=== PATIENT | male | born 1980 | race Caucasian/White ===

== ENCOUNTER 2021-06-16 14:42 | Outpatient (REF) | payer OTHER, SELFPAY | END 2021-06-16 14:43 | disposition home or self-care (01) | LOC: HO.LAB 14:42 | PROVIDERS: PCP Hospitalist; Visit Provider Internal Medicine | DX: Z20.822 Contact with and (suspected) exposure to COVID-19 (principal) | CPT/HCPCS: C9803; U0003; U0005 ==

== ENCOUNTER 2023-06-27 15:30 | Outpatient (AMB) | payer OTHER, SELFPAY ==
--- NOTE | 2023-06-27 15:34 | MHC.PC.OV ---
Vital Signs 06/27/23 15:36 Height 5 ft 7 in Weight 218 lb 3 oz BMI 34.2 BP 152/90 H Blood Pressure Location Rt radial Position Sitting Respiration 14 Pulse 76 Pulse Source Pulse Oximeter Temp 98.8 F Temp Source Temporal Artery Scan Pulse Oximetry (%) 98 Oxygen Delivery Method Room Air Intake Visit Reasons: BP Med review Intake Note: Patient is here with his spouse-Tiffanie. Patient reports concerns for blood pressure and medication review for blood pressure. Patient is experiencing palpitations x2 days. Patient reports relaxing, laying down helps palpitations subside. 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 Accompanied by: Spouse Allergies hydrochlorothiazide Allergy (Unknown, Verified 06/27/23 15:57) headache No Known Allergies Allergy (Verified 06/27/23 15:57) Medication List - Last Reconciled 06/27/23 by Jewel Pennington CNP lisinopril 10 mg PO DAILY lisinopril 20 mg PO DAILY Tobacco use date assessed: 06/27/23 Dental Screening Dental Screen Date: 06/27/23 Did you have a dental visit in the last 12 months?: No Did you have a dental problem in the last 6 months where you did not have access to dental care?: No Was dental information given to patient?: Patient has dentist HPI HPI Comments History of Present Illness Details 43-year-old [place] speaking male, accompanied by his , presents for hypertension follow-up. He is on lisinopril 20 mg in the morning and 10 mg at night. He notes he took the medication as prescribed until he ran out 5 days ago. He reports palpitations yesterday and the day before while walking. His symptoms last 5-10 seconds. He has not experienced any palpitations today. He denies chest pain or acute symptoms at this time. Interpretation by the patient's per patient's preference. [facility] Social History Housing: House Patient Tobacco Use Status: Never used Tobacco e-Cigarette/Vaping Use: Never Used service: No Current occupational status: employed Cognitive needs: No Hearing needs: No Vision needs: No Questionnaire Thrive Questionnaire Date Thrive assessed: 10/27/21 GUADALUPE-7 AMB Questionnaire GUADALUPE-7 Date GUADAULPE - 7 assessed: 10/27/21 Source: Developed by Drs. Mohinder L. Nelly Simpson, Pardeep Bedoya and colleagues, with an educational cary from [employer]. Review of Systems Const Details: Const Denies chills, Denies fatigue, Denies fever(s), Denies headache(s) and Denies weakness ENT Denies dizziness and Denies headache(s) Card Denies chest pain, Denies lightheadedness, Denies dyspnea and Denies other (Palpitations) Resp Denies cough, Denies dyspnea, Denies wheezing and Denies other ( shortness of breath) GI Denies abdominal pain, Denies melena, Denies hematochezia, Denies change in bowel habits, Denies dyspepsia and Denies nausea Denies hematuria and Denies dysuria Musc Denies abnormal gait, Denies myalgias, Denies arthralgias, Denies numbness and Denies tingling Skin/Breast Denies rash, Denies unusual bruising and Denies wounds Neuro Denies abnormal gait, Denies dizziness, Denies headache(s), Denies memory loss, Denies numbness, Denies Sensory deficit (Neuro), Denies tingling and Denies weakness Psych Denies anxiety, Denies depression, Denies memory loss Endo Denies cold intolerance, Denies fatigue, Denies heat intolerance, Denies polydipsia and Denies polyuria Aller/Immun Denies wheezing Physical exam (Primary Care) Vital Signs: Last Vital Signs Temp 98.8 F 06/27/23 15:36 Pulse 76 06/27/23 15:36 Resp 14 06/27/23 15:36 BP 152/90 H 06/27/23 15:36 Pulse Ox 98 06/27/23 15:36 Oxygen Delivery Method Room Air 06/27/23 15:36 BMI result Body Mass Index 34.2 Tobacco/Smoking Status: Tobacco use Status Tobacco use date assessed 06/27/23 06/27/23 15:40 Patient Tobacco Use Status Never used Tobacco 06/27/23 15:40 e-Cigarette/Vaping Use Never Used 06/27/23 15:40 Thrive Assessment: Date of Thrive Assessment Date Thrive assessed 10/27/21 06/27/23 15:40 Const Other: General: no acute distress and well developed Nutritional Appearance: well nourished Orientation/consciousness: patient oriented x3 HENMT Head: Yes normocephalic and Yes atraumatic Eyes General: appearance normal, both eyes and all related structures Pupils: Equal, round and reactive pupils present EOM: EOMs intact bilaterally Resp Effort & Inspection: normal respiratory effort Auscultation: clear to auscultation bilaterally Cardio Rate: regular rate Rhythm: regular rhythm Heart sounds: S1 normal heart sound present, S2 normal heart sound present, no gallops, aortic murmurs present and no rubs GI Palpation (GI): No Abdominal aortic bruit present, Soft to palpation, nontender, No hepatosplenomegaly present and No Rebound tenderness present Auscultation: normal bowel sounds General: Yes no CVA tenderness Back/Spine/Pelvis Back: no CVA tenderness Cervical Spine: cervical ROM normal and No Cervical spine tenderness Thoracic/Lumbar Spine: thoraco-lumbar ROM normal, No pain with thoraco-lumbar ROM, No thoracic spinal tenderness and No lumbar spinal tenderness Extrem General: Yes normal to inspection, No edema and No calf tenderness Skin General: warm and dry. Normal skin color. Normal skin turgor Lesions: no lesions Rashes: no rashes Trauma: no lacerations or abrasions Wounds: no wounds Nails: normal Neuro General: patient oriented x3, gait normal and no focal neuro deficit Cranial nerves: Yes Equal, round and reactive pupils present Cognition (Neuro): normal cognition Gait exam (Neuro): Normal gait present Sensory Exam: No Sensory deficit (Neuro) Psych Appearance: grossly normal Affect: normal affect Attitude: cooperative Thought process: Normal thought process present Assessment and Plan Assessment & Plan (1) HTN (hypertension): Code(s): I10 - Essential (primary) hypertension Plan: Resting blood pressure is elevated, 150/100 Lisinopril refilled. Take as prescribed Low-sodium diet encouraged Follow-up for nurse visit in 1 week for blood pressure check Follow-up with PCP as planned or return sooner with concerns or symptoms Verbalized understanding and agreed with treatment plan. (2) Murmur: Code(s): R01.1 - Cardiac murmur, unspecified Plan: Reports palpitations yesterday and the day before while walking. His symptoms last 5-10 seconds. He has not experienced any palpitations today. Aortic systolic murmur Echo, EKG, and labs ordered Referred to Cardiology Follow-up with new or worsening symptoms Verbalized understanding and agreed with treatment plan. Orders: Orders CA echo transthoracic complete Today R01.1 - Cardiac murmur, unspecified ECG 12 lead EKG Today R01.1 - Cardiac murmur, unspecified Comprehensive [place]. Panel Fast Today I10 - Essential (primary) hypertension, R01.1 - Cardiac murmur, unspecified TSH reflex Free T4 Today I10 - Essential (primary) hypertension, R01.1 - Cardiac murmur, unspecified Complete Blood Count Auto Diff Today I10 - Essential (primary) hypertension, R01.1 - Cardiac murmur, unspecified Referrals Cardiology Referral R01.1 - Cardiac murmur, unspecified Medications: Refilled lisinopril 10 mg PO DAILY 90 tabs 1RF I10 - Essential (primary) hypertension lisinopril 20 mg PO DAILY 30 tabs 0RF Coding Level of Care Code Est Pt Level 4 (81814) Diagnoses HTN (hypertension) I10 Murmur R01.1
[2023-06-27 15:36] VITALS: BP 152/90; PULSE 76; RESP 14; TEMP 37.1; O2SAT 98; BMI 34.2
== END 2023-06-27 16:25 | disposition home or self-care (01) ==
PROVIDERS: PCP Hospitalist; Visit Provider Nurse Practitioner Family
DX: I10 Essential (primary) hypertension (principal); R01.1 Cardiac murmur, unspecified
CPT/HCPCS: 99214

== ENCOUNTER → 2023-07-03 08:34 | Outpatient (REF) | payer OTHER, SELFPAY ==
--- NOTE | 2023-07-03 08:43 | ECG_ITS ---
Test Reason : murmur Blood Pressure : / mmHG Vent. Rate : 072 BPM Atrial Rate : 072 BPM P-R Int : 164 ms QRS Dur : 104 ms QT Int : 356 ms P-R-T Axes : 022 -05 022 degrees QTc Int : 389 ms Normal sinus rhythm Minimal voltage criteria for LVH, may be normal variant ( Onofre product ) Borderline ECG When compared with ECG of 13-MAR-2018 14:35, No significant change was found Referred By: Jewel Pennington Electronically Signed By:JEFF RUSSO
== END ==
LOC: HO.CARD 08:34
PROVIDERS: PCP Hospitalist; Visit Provider Nurse Practitioner Family
DX: R01.1 Cardiac murmur, unspecified (principal)
CPT/HCPCS: 93005

== ENCOUNTER 2023-07-07 08:29 | Outpatient (REF) | payer OTHER, SELFPAY ==
[2023-07-07 08:43] LABS: MANUAL DIFF FLAG NO
[2023-07-07 09:05] LABS: Basophils Absolute Auto 0.1 X10*3/uL (0.0-0.2); Basophils Percent Auto 0.8 % (0-2); Eosinophils Absolute Auto 0.2 X10*3/uL (0.0-0.4); Hematocrit 54.9 % (42.0-52.0); Hemoglobin 17.6 g/dl (14.0-18.0); Imm Gran Abs Auto 0.02 X10*3/uL (0.00-0.03); Imm Gran Pct Auto 0.3 % (0.0-0.4); Lymphocytes Absolute Auto 2.7 X10*3/uL (1.2-4.9); Lymphocytes Percent Auto 36.7 % (20-40); Mean Corpuscular HGB Conc 32.1 g/dl (31.0-36.0); Mean Corpuscular Hemoglobin 28.8 pg (27.0-33.0); Mean Corpuscular Volume 89.9 fL (80.0-98.0); Mean Platelet Volume 11.4 fL (9.4-12.4); Monocytes Absolute Auto 0.6 X10*3/uL (0.1-1.2); Monocytes Percent Auto 7.6 % (2-11); Neutrophils Absolute Auto 3.8 x10*3/uL (2.0-8.3); Neutrophils Percent Auto 51.6 % (45-73); Platelet Count 200 X10*3/uL (160-400); Red Blood Count 6.11 X10*6/uL (4.60-5.80); Red Cell Distribution Width 13.7 % (11.0-16.0); White Blood Count 7.3 X10*3/uL (4.8-10.8)
[2023-07-07 09:40] LABS: Alanine Aminotransferase 45 U/L (0-40); Albumin Level 4.2 g/dL (3.5-5.0); Alkaline Phosphatase 82 U/L (39-117); Anion Gap 11 (12-20); Aspartate Amino Transferase 20 U/L (5-37); Bilirubin Total 0.5 mg/dL (0.0-1.0); Blood Urea Nitrogen 13 mg/dL (9-16); Calcium 9.4 mg/dL (8.4-10.2); Carbon Dioxide 28 mmol/L (22-29); Chloride 107 mmol/L (96-108); Estimated Glomerular Filt Rate > 60; Glucose Fasting 96 mg/dL (60-99); Potassium 4.8 mmol/L (3.3-5.1); Sodium 141 mmol/L (135-145); Total Protein 7.5 g/dL (6.5-8.0)
[2023-07-07 09:46] LABS: TSH reflex Free T4 0.64 uIU/mL (0.32-4.0)
== END 2023-07-07 08:30 | disposition home or self-care (01) ==
LOC: HO.LAB 08:29
PROVIDERS: PCP Hospitalist; Visit Provider Nurse Practitioner Family
DX: R01.1 Cardiac murmur, unspecified (principal); I10 Essential (primary) hypertension
CPT/HCPCS: 36415; 80053; 84443; 85025

== ENCOUNTER → 2023-08-01 08:06 | Outpatient (REF) | payer OTHER, SELFPAY ==
--- NOTE | 2023-08-01 08:09 | CA_ITS ---
Transthoracic Echocardiogram Patient (Last, First, Middle): Clark Moran, Gender: Male Date of : 1980 Age: 43 Procedure Date: 08/01/2023 Procedure Type: Transthoracic Echocardiogram Location: OP Height: 170.18 cm Weight: 97.98 kg BSA: 2.09 m2 Heart Rate: bpm BP: 130 / 74 mmHg Log Cooker: Referring MD: Jewel Pennington CNP Symptoms: R01.1 - Cardiac murmur, unspecified Study Quality: Good ECG Rhythm: Sinus Conclusions: - The left ventricular systolic function is normal. The calculated ejection fraction is 60% by biplane method. - No obvious valvular pathology seen on this study. Findings Left Ventricle Normal left ventricular cavity size. There is mildly increased left ventricular wall thickness. The left ventricular systolic function is normal. The calculated ejection fraction is 60% by biplane method. There is no evidence of regional wall motion abnormalities. Diastolic function is normal for age. Right Ventricle Normal right ventricular cavity size and systolic function. Atria Both atria are normal in size. Aortic Valve There is a normal trileaflet aortic valve. There is no aortic valve stenosis. There is no aortic valve regurgitation. Mitral Valve The mitral valve appears normal. There is no mitral valve regurgitation. There is no mitral valve stenosis. Pulmonic Valve The pulmonic valve is likely normal. There is trace pulmonic valve regurgitation. Tricuspid Valve There is trace tricuspid valve regurgitation. There is no evidence of pulmonary hypertension. Great Vessels The asc aorta is normal in size. Venous The inferior vena cava is normal in size and collapses greater than 50% with inspiration. Pericardium/Pleural There is no evidence of pericardial effusion. Prior Study Comparison No significant change compared to prior study dated: 04/14/2020. Recommendations, Care & Conclusions No obvious valvular pathology seen on this study. Measurements 2D Linear Measurements IVSd: 1.20 0.6-0.9/0.6-1.0 cm LVIDd: 4.84 3.9-5.3/4.2-5.9 cm LVIDd Index: 2.32 2.4-3.2/2.2-3.1 cm/m2 LVIDs: 2.79 2.0-3.6 cm LVPWd: 1.20 0.7-1.1 cm Ao Root: 3.00 2.1-3.5 cm LA Diam: 3.50 2.7-3.8/3.0-4.0 cm LAIDs Index: 1.67 1.5-2.3 cm/m2 LV Mass: 276.77 67-162/88-224 g LV Mass Index: 132.43 43-95/49-115 g/m2 LVOT Diam: 2.30 3.0+(-)1.3 cm 2D Systolic Function EF 4C: 57.10 >55% EF 2C: 64.40 >55% EF BiP: 60.40 >55% Mitral Valve MV Pk E: 0.85 MV PK A: 0.68 MV Decel Time: 146.00 E/A: 1.20 E'Lateral: 15.80 E'Medial: 5.98 E/E' Med: 14.20 E/E' Lat: 5.40 PHT: 43.00 MVA PHT: 5.12 Decel Custer: 5.82 Aortic Valve AoV Pk César: 1.32 AoV Mn César: 0.85 AoV VTI: 0.27 AoV Pk Grad: 7.00 Aov Mn Grad: 4.00 RIP Cont.VTI: 2.68 LVOT LVOT Pk César: 0.92 LVOT Mn César: 0.62 LVOT VTI: 0.18 LVOT Pk Grad: 3.00 LVOT Mn Grad: 2.00 LVOT Diam: 2.30 LVOT Area: 4.15 Diastolic Function MV Pk E: 0.85 MV Pk A: 0.68 E/A: 1.20 E'Medial: 5.98 E/E' Med: 14.20 E' Laterial: 15.80 E/E' Lat: 5.40 Right Ventricle TAPSE (mm): 22.00 TVS' César: 11.00 Tricuspid Valve TR Pk César: 1.84 TR Pk Grad: 14.00 RA Press: 3.00 RVSP: 17.00 Great Vessels Aorta Ao Root-2D: 3.00 2.0-3.7 cm Ao Asc: 3.50 2.1-3.4 cm Pulmonary Valve PV Pk César: 1.06 Peak PV Grad: 4.00 Updated in Other Vendor System with Status of Final Keyon Blankenship MD electronically signed on 08/02/2023 12:10:15 PM with status of Final
== END ==
LOC: HO.CARD 08:06
PROVIDERS: Visit Provider Nurse Practitioner Family
DX: R01.1 Cardiac murmur, unspecified (principal)
CPT/HCPCS: 93306

== ENCOUNTER → 2023-08-01 08:09 | Outpatient (BNV) | payer OTHER, SELFPAY | PROVIDERS: Visit Provider Internal Medicine | DX: R01.1 Cardiac murmur, unspecified (principal) | CPT/HCPCS: 93306 ==

== ENCOUNTER 2023-10-16 08:07 | Outpatient (AMB) | payer OTHER, SELFPAY ==
--- NOTE | 2023-10-16 08:30 | MHC.OFFVIS ---
Intake Vital Signs 10/16/23 08:31 Height 5 ft 7 in Weight 216 lb 7.903 oz BMI 33.9 BP 132/90 H Blood Pressure Location Rt brachial Position Sitting Pulse 82 Intake Visit Reasons: NPV/Cardiac murmur/M. 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 Upon auscultation by PCP, murmur was detected and hence he has been referred. He has overweight, hypertensive. However, no known cardiovascular disease. No history of any coronary disease or myocardial infarction or cardiomyopathy or in fact anything else from cardiac standpoint. He is on medications for hypertension. He takes lisinopril 20 mg the morning and 10 mg in the evening. Within limits of his activity, he does not have any symptoms like chest pain or shortness of breath or in fact anything cardiac sounding. PCP note mentions palpitations but repeatedly questioned him and he denies it. [facility] Surgical History (Updated 10/16/23 @ 08:35 by Deana Rowe) Hx of appendectomy Family History (Updated 10/16/23 @ 08:35 by Deana Rowe) Mother Heart problem Father Heart problem Housing: House Patient Tobacco Use Status: Never used Tobacco e-Cigarette/Vaping Use: Never Used service: No Current occupational status: employed Cognitive needs: No Hearing needs: No Vision needs: No Review of Systems Const Denies chills, Denies daytime sleepiness, Denies fatigue, Denies fever(s), Denies frequent falls, Denies night sweats, Denies snoring, Denies weakness, Denies weight gain and Denies weight loss Eyes Denies loss of vision ENT Denies dizziness and Denies hearing loss Card Denies chest pain, Denies chest pain with activity, Denies syncope, Denies rapid heart rate, Denies edema, Denies claudication, Denies leg edema, Denies lightheadedness, Denies palpitations, Denies dyspnea, Denies dyspnea on exertion and Denies orthopnea Resp Denies cough, Denies excessive phlegm production, Denies dyspnea, Denies dyspnea on exertion, Denies snoring and Denies wheezing GI Denies abdominal pain, Denies hematochezia, Denies change in bowel habits, Denies change in stool character, Denies heartburn, Denies nausea and Denies vomiting Denies hematuria, Denies dysuria and Denies urinary frequency Musc Denies arthralgias, Denies muscle weakness, Denies numbness and Denies tingling Skin/Breast Denies nail changes and Denies rash Neuro Denies Abnormal speech present, Denies dizziness, Denies syncope, Denies frequent falls, Denies loss of vision, Denies memory loss, Denies numbness, Denies tingling and Denies weakness Psych Denies depression and Denies memory loss Endo Denies fatigue and Denies palpitations Aller/Immun Denies wheezing Physical Exam Vital Signs: Last Vital Signs Pulse 82 10/16/23 08:31 BP 132/90 H 10/16/23 08:31 BMI result Body Mass Index 33.9 Const General: comfortable and no acute distress Orientation/consciousness: patient oriented x3 HEENT Other: Unremarkable Head: Yes normal to inspection Neck Neck: Yes normal visual inspection Chest Chest palpation & inspection: normal inspection of the chest Resp Auscultation: clear to auscultation bilaterally Cardio Palpation: normal PMI Heart sounds: S1 normal heart sound present, S2 normal heart sound present, no gallops, Murmur heart sound present systolic I/ and at the right sternal border and no rubs GI Palpation (GI): Soft to palpation Back/Spine/Pelvis Other: unremarkable Skin General skin exam: no rashes or lesions noted Neuro General: patient oriented x3 Speech: No Abnormal speech present Extrem General: Yes normal to inspection Psych Mental Status: mental status grossly normal Assessment & Plan Assessment & Plan (1) Murmur: Code(s): R01.1 - Cardiac murmur, unspecified Plan: Possibly some aortic valve sclerosis. On the echocardiogram, no significant valvular findings. (2) HTN (hypertension): Code(s): I10 - Essential (primary) hypertension Plan: Systolic looks okay but diastolic slightly high. Currently on lisinopril. May be followed through his own PCP. Plan If any symptoms in the future or other concerns, advised him to contact us. Discussed with significant other. Coding Level of Care Code New Pt Level 3 (28706) Diagnoses Murmur R01.1 HTN (hypertension) I10
[2023-10-16 08:31] VITALS: BP 132/90; PULSE 82; BMI 33.9
== END 2023-10-16 13:09 | disposition home or self-care (01) ==
PROVIDERS: PCP Hospitalist; Visit Provider Internal Medicine
DX: R01.1 Cardiac murmur, unspecified (principal); I10 Essential (primary) hypertension
CPT/HCPCS: 99203

== ENCOUNTER → 2023-10-16 08:07 | Outpatient (BNVA) | payer OTHER, SELFPAY | PROVIDERS: PCP Hospitalist; Visit Provider Internal Medicine | DX: R01.1 Cardiac murmur, unspecified (principal); I10 Essential (primary) hypertension | CPT/HCPCS: 99202 ==

== ENCOUNTER 2023-11-05 08:23 | Outpatient (AMB) | payer OTHER, SELFPAY ==
[2023-11-05 08:26] VITALS: BP 138/82; PULSE 80; RESP 12; O2SAT 95; BMI 34.6
--- NOTE | 2023-11-05 08:26 | A.OFFPC_ITS ---
Vital Signs 11/05/23 08:26 11/05/23 08:50 Height 5 ft 7 in Weight 221 lb 2 oz BMI 34.6 BP 138/82 136/90 H Blood Pressure Location Lt brachial Lt brachial Position Sitting Sitting Respiration 12 Pulse 80 Pulse Source Pulse Oximeter Pulse Oximetry (%) 95 Oxygen Delivery Method Room Air Intake Visit Reasons: CPE, Transfer of care from [facility] Intake Note: Patient is here for a physical and he reports he has no concerns. Patient reports he needs a refill on his lisinopril 20mg. Dining Services Director Required: No Accompanied by: Spouse Allergies hydrochlorothiazide Allergy (Unknown, Verified 11/05/23 08:47) headache Medication List - Last Reconciled 11/05/23 by Jewel Pennington CNP lisinopril 20 mg PO DAILY lisinopril 10 mg PO DAILY Tobacco use date assessed: 11/05/23 HPI HPI Comments History of Present Illness Details 43-year-old Mongolian speaking male, accom panied by his , presents for transfer of care His former PCP was DEAN who is no longer with the practice. His last office visit was on 06/27/2023 for hypertension follow-up. His last blood work was on 07/11/2023, findings were unrevealing except for slightly elevated ALT. Last cholesterol levels in 2019 revealed hyperlipidemia He has history of hypertension, hyperlipidemia, and heart murmur. He was evaluated by [facility] cardiology for heart murmur He admits to taking his medications as prescribed without adverse reactions He offers no complaints and denies acute symptoms at this time He notes that he has not been making healthy dietary choices nor has he been exercising [facility] Medical History (Updated 11/05/23 @ 09:10 by Jewel Pennington CNP) No pertinent past medical history Surgical History (Updated 10/16/23 @ 08:35 by Deana Rowe) Hx of appendectomy Family History (Updated 10/16/23 @ 08:35 by Deana Rowe) Mother Heart problem Father Heart problem Social History (Updated 11/05/23 @ 08:34 by Celia Arteaga CMA) Household Members: Spouse and Children Housing: House Are you a primary manager critical care unit to a significant other at home: No Do you presently have visiting nurse or other home services: No 75 years or older and lives alone: No Alcohol intake: never Patient Tobacco Use Status: Never used Tobacco e-Cigarette/Vaping Use: Never Used service: No Current occupational status: employed Current occupational exposures/hazards: Yes Sexual orientation: Unable to collect Gender identity: Unable to collect Cognitive needs: No Hearing needs: No Vision needs: No Questionnaire PHQ-9 Over the last 2 weeks, how often have you been bothered by any of the following problems? 1. Little interest or pleasure in doing things: not at all 2. Feeling down, depressed, or hopeless: not at all 3. Trouble falling or staying asleep, or sleeping too much: not at all 4. Feeling tired or having little energy: not at all 5. Poor appetite or overeating: not at all 6. Feeling bad about yourself - or that you are a failure or have let yourself or your family down: not at all 7. Trouble concentrating on things, such as reading the newspaper or watching television: not at all 8. Moving or speaking so slowly that other people could have noticed. Or the opposite - being so fidgety or restless that you have been moving around a lot more than usual: not at all 9. Thoughts that you would be better off or of hurting yourself in some way: not at all Total score: 0 Depression Screening Interpretation: Negative Depression Screening Done: Yes 20681 - PHQ-9 Billing: Yes Source: Developed by Drs. Mohinder Simpson, Nelly Guzmán, Pardeep Bedoya and colleagues, with an educational cary from [employer]. Thrive Questionnaire Date Thrive assessed: 11/05/23 I am a: Patient What is your living situation today?: I have a steady place to live Within the past 12 months, did the food you bought not last and you didn't have the money to get more?: Never true Within the past 12 months, did you worry whether your food would run out before you got money to buy more?: Never true Do you have trouble paying for medicines?: No Do you have trouble getting transportation to medical appointments?: No Do you have trouble paying your heating and electricity bill?: No Do you have trouble taking care of your child, family member or friend?: No Do you have trouble with day-to-day activities such as bathing, preparing meals, shopping, managing finances, etc.?: No Are you currently unemployed and looking for a job?: No Please select the resources that you would like help with: None Currently or been in a relationship where the following occur: no concerns reported AUDIT C Alcohol Use Questionnaire (AUDIT-C) 1. How often do you have a drink containing alcohol?: Monthly or less 2. How many drinks containing alcohol do you have on a typical day when you are drinking?: 1 or 2 3. How often do you have six or more drinks on one occasion?: Never Total Score: 1 GUADALUPE-7 AMB Questionnaire GUADALUPE-7 Date GUADALUPE - 7 assessed: 11/05/23 Feeling nervous, anxious, or on edge: 0 = Not at all Not being able to stop or control worryin = Not at all Worrying too much about different things: 0 = Not at all Trouble relaxin = Not at all Being so restless that it is hard to sit still: 0 = Not at all Becoming easily annoyed or irritable: 0 = Not at all Feeling afraid as if something awful might happen: 0 = Not at all Total GUADALUPE-7 score (0-4 normal; 5-9 mild; 10-14 moderate; 15-21 severe): 0 Source: Developed by Drs. Mohinder Simpson, Nelly Guzmán, Pardeep Bedoya and colleagues, with an educational cary from [employer]. GUADALUPE-7 Assessment Billing GUADALUPE-7 Assessment Tool: GUADALUPE-7 Assessment 88257 Review of Systems Const Details: Denies chills, Denies fatigue, Denies fever(s), Denies headache(s) and Denies weakness HEENT Denies change in vision, Denies dizziness, Denies headache(s), Denies hearing loss, Denies nasal congestion, Denies sinus pain, Denies sinus pressure and Denies sore throat Card Denies chest pain, Denies lightheadedness, Denies dyspnea and Denies other ( palpitations) Resp Denies cough, Denies dyspnea and Denies wheezing GI Denies abdominal pain, Denies melena, Denies hematochezia, Denies change in bowel habits, Denies dyspepsia and Denies nausea Denies hematuria and Denies dysuria Musc Denies abnormal gait, Denies myalgias, Denies arthralgias, Denies numbness and Denies tingling Skin/Breast Denies rash, Denies unusual bruising and Denies wounds Neuro Denies abnormal gait, Denies dizziness, Denies headache(s), Denies memory loss, Denies numbness, Denies Sensory deficit (Neuro), Denies tingling and Denies weakness Psych Denies anxiety, Denies depression and Denies memory loss Endo Denies cold intolerance, Denies fatigue, Denies heat intolerance, Denies polydipsia and Denies polyuria Ted/Lymph Denies easy bleeding and Denies easy bruising Aller/Immun Denies wheezing Physical exam (Primary Care) Vital Signs: Last Vital Signs Pulse 80 11/05/23 08:26 Resp 12 11/05/23 08:26 BP 138/82 11/05/23 08:26 Pulse Ox 95 11/05/23 08:26 Oxygen Delivery Method Room Air 11/05/23 08:26 BMI result Body Mass Index 34.6 Tobacco/Smoking Status: Tobacco use Status Tobacco use date assessed 11/05/23 11/05/23 08:32 Patient Tobacco Use Status Never used Tobacco 11/05/23 08:34 e-Cigarette/Vaping Use Never Used 11/05/23 08:34 PHQ-9: PHQ-9 Score PHQ-9: Total score 0 11/05/23 08:38 Depression Screening Interpretation: Negative Thrive Assessment: Date of Thrive Assessment Date Thrive assessed 11/05/23 11/05/23 08:36 Currently or been in a relationship where the following occur: no concerns reported Const Other: General: no acute distress, well developed, alert and awake Nutritional Appearance: well nourished Orientation/consciousness: patient oriented x3 HENMT Head: Yes normocephalic and Yes atraumatic Ears: hearing grossly normal bilaterally and TM's normal bilaterally General nose exam: Normal external nose present and Normal nares present Mouth: Normal oral and palatal mucosa present and moist mucous membranes Teeth and gingiva: dentition normal Throat: Yes oropharynx normal Eyes Pupils: Equal, round and reactive pupils present and Pupil accommodation reflex normal EOM: EOMs intact bilaterally Neck Neck: Yes normal visual inspection, Yes no lymphadenopathy and Yes trachea midline Thyroid: Thyroid normal Carotids: no bruits Lymphatic: no lymphadenopathy noted Chest Chest palpation & inspection: normal inspection of the chest Resp Effort & Inspection: normal respiratory effort Auscultation: clear to auscultation bilaterally Cardio Rate: regular rate Rhythm: regular rhythm Heart sounds: S1 normal heart sound present, S2 normal heart sound present, no gallops, no murmurs and no rubs Bruits: no abdominal aortic bruits and no carotid bruits GI Palpation (GI): No Abdominal aortic bruit present, Soft to palpation, nontender, No hepatosplenomegaly present and No Rebound tenderness present Auscultation: normal bowel sounds General: Yes no CVA tenderness Back/Spine/Pelvis Back: no CVA tenderness Cervical Spine: cervical ROM normal and No Cervical spine tenderness Thoracic/Lumbar Spine: thoraco-lumbar ROM normal, No pain with thoraco-lumbar ROM, No thoracic spinal tenderness and No lumbar spinal tenderness Skin General: warm and dry. Normal skin color. Normal skin turgor Lesions: no lesions Rashes: no rashes Trauma: no lacerations or abrasions Wounds: no wounds Nails: normal Neuro General: patient oriented x3, gait normal and CN's II-XI intact bilaterally Cranial nerves: Yes Equal, round and reactive pupils present Cognition (Neuro): normal cognition Gait exam (Neuro): Normal gait present Motor exam (neuro): 5/5 motor strength present throughout Sensory Exam: No Sensory deficit (Neuro) Deep tendon reflexes (DTR's): Right patellar reflex intensity grade: 2+ and Left patellar reflex intensity grade: 2+ Extrem General: Yes normal to inspection, No edema and No calf tenderness Psych Appearance: grossly normal Affect: normal affect Attitude: cooperative Thought process: Normal thought process present Assessment and Plan Assessment & Plan (1) Normal physical examination, routine: Code(s): Z00.00 - Encounter for general adult medical examination without abnormal findings Plan: No significant physical restrictions or limitations noted Recent blood work reviewed with the patient Advised to follow-up in 1 month for hypertension and hyperlipidemia Return sooner with symptoms or concerns Verbalized understanding and agreed with treatment plan Interpretation by the patient's per patient's preference (2) HTN (hypertension): Code(s): I10 - Essential (primary) hypertension Plan: Resting blood pressure is 136/90, slightly above goal of less than 140/90 Lisinopril increased to 40 mg daily. Take as prescribed Low-sodium diet encouraged Follow-up in 1 month or return sooner with symptoms or concerns Verbalized understanding and agreed with treatment plan (3) Hyperlipidemia: Code(s): E78.5 - Hyperlipidemia, unspecified Plan: He has history of hyperlipidemia without medication treatment He denies healthy diet or exercise Advised to limit foods high in saturated fat and avoid foods high trans fat Routine exercise encouraged Will recheck lipid panel. Advised to fast for 10-12 hours, may drink water only, and get blood work done before his next visit Follow-up in 1 month Verbalized understanding and agreed with treatment plan (4) Obesity (BMI 30-39.9): Code(s): E66.9 - Obesity, unspecified Plan: He is not making healthy dietary choices or exercising He currently weighs 221 lb, BMI is 34.6 Healthy diet and routine exercise encouraged Referred to personal lines sales rep/dietitian Follow-up with symptoms or concerns Verbalized understanding and agreed with treatment plan (5) Elevated ALT measurement: Code(s): R74.01 - Elevation of levels of liver transaminase levels Plan: History of slightly elevated ALT level No acute symptoms He drinks alcohol occasionally Likely hepatic steatosis Will perform further workup based on symptoms or marked increase of liver enzymes Follow-up with symptoms or concerns Verbalized understanding and agreed with plan Orders: Orders Lipid Panel Today E78.5 - Hyperlipidemia, unspecified Referrals Nutrition/Dietitian Referral E66.9 - Obesity, unspecified Medications: New lisinopril 40 mg PO DAILY 30 days 30 tabs 3RF Discontinued lisinopril Discontinued Reason: Change Referral Type 20 mg PO DAILY 30 tabs 1RF lisinopril Discontinued Reason: Doctor's Order 10 mg PO DAILY 90 tabs 1RF I10 - Essential (primary) hypertension Coding Level of Care Code Est Pt Prev Care 40-64y(73237) Diagnoses Normal physical examination, routine Z00.00 HTN (hypertension) I10 Hyperlipidemia E78.5 Obesity (BMI 30-39.9) E66.9 Elevated ALT measurement R74.01 Additional Codes GUADALUPE-7 Assessment Billing - GUADALUPE-7 Assessment Tool: GUADALUPE-7 Assessment [id number] ([id number])
[2023-11-05 08:50] VITALS: BP 136/90
== END 2023-11-05 09:04 | disposition home or self-care (01) ==
PROVIDERS: Visit Provider Nurse Practitioner Family
DX: Z00.00 Encounter for general adult medical examination without abnormal findings (principal); E66.9 Obesity, unspecified; Z68.34 Body mass index [BMI] 34.0-34.9, adult; I10 Essential (primary) hypertension; E78.5 Hyperlipidemia, unspecified; R74.01 Elevation of levels of liver transaminase levels
CPT/HCPCS: 99396

== ENCOUNTER → 2024-12-24 10:34 | Outpatient (BNVA) | payer SELFPAY | PROVIDERS: PCP Nurse Practitioner Family; Visit Provider Nurse Practitioner Family ==

== ENCOUNTER → 2025-02-03 10:23 | Outpatient (BNVA) | payer OTHER, SELFPAY | PROVIDERS: PCP Nurse Practitioner Family; Visit Provider Nurse Practitioner Family ==

== ENCOUNTER 2025-03-30 15:08 | Outpatient (AMB) | payer OTHER, SELFPAY ==
--- NOTE | 2025-03-30 15:23 | A.OFFPC_ITS ---
Vital Signs 03/30/25 15:25 Height 5 ft 7 in Weight 223 lb BMI 34.9 BP 140/82 H Blood Pressure Location Lt brachial Position Sitting Pulse 89 Pulse Source Pulse Oximeter Temp 97.1 F Temp Source Temporal Artery Scan Pulse Oximetry (%) 97 Oxygen Delivery Method Room Air Intake Visit Reasons: ELY Aditi Intake Note: Patient is here today form ELY Kristopher. Per pt spouse pt has been taking half of the Lisinopril 40mg. Federal Aid Coordinator Required: Yes Federal Aid Coordinator Language: Chief Engineer [employer] Name: Tiffanie (spouse) Information Interpreted: non-clinical & clinical (pt decline finance business partner service prefer spouse to translate) Furniture Fabricator: Present Accompanied by: Spouse Allergies hydrochlorothiazide Allergy (Unknown, Verified 03/30/25 15:55) headache Medication List - Last Reconciled 03/30/25 by FLETCHER Reynoso lisinopril 40 mg PO DAILY 30 days Tobacco use date assessed: 03/30/25 Dental Screening Dental Screen Date: 03/30/25 Did you have a dental visit in the last 12 months?: No Did you have a dental problem in the last 6 months where you did not have access to dental care?: No Was dental information given to patient?: Patient declined HPI ELY Aditi HPI Details The patient is a 44-year-old male with significant past medical history of obesity, hypertension, murmur and hyperlipidemia. Transitioning care from our [place] office. Last visit 10/2023, and saw JEAN Pennington He is presenting with management of essential hypertension. The patient has a history of essential hypertension and reports challenges in managing his condition due to insurance lapses leading to a gap in medication, resulting in elevated blood pressure levels. He recounts having a blood pressure reading of 150 mmHg systolic on 20 mg of lisinopril, which he though was an okayed blood pressure reading. Order in the chart is lisinopril 40 mg but he patient was only taking half. The patient notes episodes of untriggered short-lived dizziness occurring even at rest, potentially exacerbated by inadequate hydration. He admits to regular coffee consumption with limited water intake. In addition, the patient suffers from seasonal allergic rhinitis, particularly during spring, leading to nasal congestion, which is recommended to be managed with nasal sprays and [id number] antihistamines like Claritin or Zyrtec. [facility] Medical History (Updated 03/30/25 @ 17:00 by FLETCHER Reynoso) Hyperlipidemia Murmur HTN (hypertension) Surgical History Hx of appendectomy Family History Mother Heart problem Father Heart problem Social History Household Members: Spouse and Children Housing: House Are you a primary physician locums urgent care to a significant other at home: No Do you presently have visiting nurse or other home services: No 75 years or older and lives alone: No Alcohol intake: never Patient Tobacco Use Status: Never used Tobacco e-Cigarette/Vaping Use: Never Used Second Hand Smoke Exposure: No service: No Current occupational status: employed Current occupational exposures/hazards: Yes Sexual orientation: Unable to collect Gender identity: Unable to collect Cognitive needs: No Hearing needs: No Vision needs: No Questionnaire PHQ-9 Over the last 2 weeks, how often have you been bothered by any of the following problems? 1. Little interest or pleasure in doing things: not at all 2. Feeling down, depressed, or hopeless: not at all 3. Trouble falling or staying asleep, or sleeping too much: not at all 4. Feeling tired or having little energy: not at all 5. Poor appetite or overeating: not at all 6. Feeling bad about yourself - or that you are a failure or have let yourself or your family down: not at all 7. Trouble concentrating on things, such as reading the newspaper or watching television: not at all 8. Moving or speaking so slowly that other people could have noticed. Or the opposite - being so fidgety or restless that you have been moving around a lot more than usual: not at all 9. Thoughts that you would be better off or of hurting yourself in some way: not at all Total score: 0 Depression Screening Interpretation: Negative Depression Screening Done: Yes Source: Developed by Drs. Mohinder Simpson, Nelly Guzmán, Pardeep Bedoya and colleagues, with an educational cary from [employer]. Thrive Questionnaire Date Thrive assessed: 03/30/25 I am a: Patient What is your living situation today?: I have a steady place to live Within the past 12 months, did the food you bought not last and you didn't have the money to get more?: Never true Within the past 12 months, did you worry whether your food would run out before you got money to buy more?: Never true Do you have trouble paying for medicines?: No Do you have trouble getting transportation to medical appointments?: No Do you have trouble paying your heating and electricity bill?: No Do you have trouble taking care of your child, family member or friend?: No Do you have trouble with day-to-day activities such as bathing, preparing meals, shopping, managing finances, etc.?: No Are you currently unemployed and looking for a job?: No Are you interested in more education?: No Please select the resources that you would like help with: None Currently or been in a relationship where the following occur: I choose not to answer THRIVE Score: 0 AUDIT C Alcohol Use Questionnaire (AUDIT-C) 1. How often do you have a drink containing alcohol?: Monthly or less 2. How many drinks containing alcohol do you have on a typical day when you are drinking?: 1 or 2 Total Score: 1 GUADALUPE-7 AMB Questionnaire GUADALUPE-7 Date GUADALUPE - 7 assessed: 03/30/25 Feeling nervous, anxious, or on edge: 0 = Not at all Not being able to stop or control worryin = Not at all Worrying too much about different things: 0 = Not at all Trouble relaxin = Not at all Being so restless that it is hard to sit still: 0 = Not at all Becoming easily annoyed or irritable: 0 = Not at all Feeling afraid as if something awful might happen: 0 = Not at all Total GUADALUPE-7 score (0-4 normal; 5-9 mild; 10-14 moderate; 15-21 severe): 0 Source: Developed by Drs. Mohinder Simpson, Nelly Guzmán, Pardeep Bedoya and colleagues, with an educational cary from [employer]. Review of Systems Const Denies headache(s) Eyes Denies loss of vision ENT Denies vertigo, Reports dizziness (intermittently once in a while), Denies otalgia, Denies headache(s), Reports nasal congestion, Reports nasal discharge (clear), Denies sore throat and Reports other (sneezing) Card Denies chest pain, Denies leg edema and Denies lightheadedness Resp Denies cough, Denies hemoptysis and Denies wheezing GI Denies abdominal pain, Denies melena, Denies constipation, Denies diarrhea and Denies vomiting Denies dysuria, Denies urinary frequency and Denies urinary urgency Musc Denies arthralgias, Denies joint swelling, Denies numbness and Denies tingling Neuro Denies Abnormal speech present, Denies behavioral changes, Denies vertigo, Reports dizziness (intermittently once in a while), Denies headache(s), Denies loss of vision, Denies memory loss, Denies numbness and Denies tingling Psych Denies anxiety, Denies behavioral changes, Denies depression, Denies memory loss and Denies panic attacks Ted/Lymph Denies easy bleeding and Denies easy bruising Aller/Immun Denies wheezing Physical exam (Primary Care) Vital Signs: Last Vital Signs Temp 97.1 F 03/30/25 15:25 Pulse 89 03/30/25 15:25 BP 140/82 H 03/30/25 15:25 Pulse Ox 97 03/30/25 15:25 Oxygen Delivery Method Room Air 03/30/25 15:25 BMI result Body Mass Index 34.9 Tobacco/Smoking Status: Tobacco use Status Tobacco use date assessed 03/30/25 03/30/25 15:29 Patient Tobacco Use Status Never used Tobacco 03/30/25 15:29 e-Cigarette/Vaping Use Never Used 03/30/25 15:29 PHQ-9: PHQ-9 Score PHQ-9: Total score 0 03/30/25 15:29 Depression Screening Interpretation: Negative Thrive Assessment: Date of Thrive Assessment Date Thrive assessed 03/30/25 03/30/25 15:29 Currently or been in a relationship where the following occur: I choose not to answer Const General: healthy appearing, no acute distress, alert and awake Nutritional Appearance: well nourished Orientation/consciousness: oriented to person, oriented to place and oriented to time HENMT Ears: TM's normal bilaterally General nose exam: Abnormal mucous membranes and turbinates present erythematous and Nasal discharge present clear Throat: Yes posterior oropharynx normal Eyes Conjunctivae: conjunctivae normal Sclerae: sclerae normal Pupils: Equal, round and reactive pupils present Neck Neck: Yes no lymphadenopathy and Yes no JVD Thyroid: Thyroid normal Carotids: no bruits Resp Effort & Inspection: normal respiratory effort and not tachypneic Auscultation: no crackles, no rales, no rhonchi and no wheezes Cardio Rate: regular rate Rhythm: regular rhythm Heart sounds: Murmur heart sound present systolic I/ and normal S1 and S2 GI Palpation (GI): Soft to palpation, nontender, no hepatomegaly and no splenomegaly Auscultation: normal bowel sounds Skin General skin exam: no rashes or lesions noted and dry skin Neuro General: oriented to person, oriented to place and oriented to time Cranial nerves: Yes Equal, round and reactive pupils present Speech: No Abnormal speech present Gait exam (Neuro): Normal gait present Motor exam (neuro): no tremor noted Extrem Right upper extremity: full ROM Left upper extremity: full ROM Right lower extremity: full ROM; no edema Left lower extremity: full ROM; no edema Psych Mental Status: mental status grossly normal Speech and movement: Normal speech and movement present Affect: normal affect Attitude: cooperative Thought process: Normal thought process present Coding Level of Care Code Est Pt Level 3 (50646) Diagnoses Hypertension, unspecified type I10 Hypertension type: unspecified Seasonal allergic rhinitis due to pollen J30.1 Allergic rhinitis trigger: pollen Allergic rhinitis seasonality: seasonal Rhinitis type: allergic Time Spent (min) 34 Assessment & Plan Assessment & Plan (1) HTN (hypertension): Code(s): I10 - Essential (primary) hypertension Category: Medical Qualifiers: Hypertension type: unspecified Qualified Code(s): I10 - Essential (primary) hypertension Plan: Lisinopril started on 20 mg daily, educated the patient and partner about cutting out salt out of the diet. He is only drinking one cup of coffee in the morning. Advised him to check in blood pressure two times a day. Follow up appt in 6 weeks for physical, will evaluate his blood pressure then. (2) Rhinitis: Code(s): J31.0 - Chronic rhinitis Category: Medical Qualifiers: Allergic rhinitis trigger: pollen Allergic rhinitis seasonality: seasonal Rhinitis type: allergic Qualified Code(s): J30.1 - Allergic rhinitis due to pollen Plan: Stuffy nose and sneezing only during the spring months. Flonase inhaler and claritin ordered.. Informed the patient that his insurance might not cover the claritin and he should purchase it otc if that happens Orders: Orders Complete Blood Count Auto Diff Today E78.5 - Hyperlipidemia, unspecified, I10 - Essential (primary) hypertension, R01.1 - Cardiac murmur, unspecified, Z00.00 - Encounter for general adult medical examination without abnormal findings Comprehensive [place]. Panel Fast Today E78.5 - Hyperlipidemia, unspecified, I10 - Essential (primary) hypertension, R01.1 - Cardiac murmur, unspecified, Z00.00 - Encounter for general adult medical examination without abnormal findings TSH reflex Free T4 Today E78.5 - Hyperlipidemia, unspecified, I10 - Essential (primary) hypertension, R01.1 - Cardiac murmur, unspecified, Z00.00 - Encounter for general adult medical examination without abnormal findings UA CC w/rflx Micro + Cult Today E78.5 - Hyperlipidemia, unspecified, I10 - Essential (primary) hypertension, R01.1 - Cardiac murmur, unspecified, Z00.00 - Encounter for general adult medical examination without abnormal findings Lipid Panel Today E78.5 - Hyperlipidemia, unspecified, I10 - Essential (primary) hypertension, R01.1 - Cardiac murmur, unspecified, Z00.00 - Encounter for general adult medical examination without abnormal findings Glucose Fasting Today E78.5 - Hyperlipidemia, unspecified, I10 - Essential (primary) hypertension, R01.1 - Cardiac murmur, unspecified, Z00.00 - Encounter for general adult medical examination without abnormal findings Vitamin D 25-OH Total Today E78.5 - Hyperlipidemia, unspecified, I10 - Essential (primary) hypertension, R01.1 - Cardiac murmur, unspecified, Z00.00 - Encounter for general adult medical examination without abnormal findings CT NG by PCR Today E78.5 - Hyperlipidemia, unspecified, I10 - Essential (primary) hypertension, R01.1 - Cardiac murmur, unspecified, Z00.00 - Encounter for general adult medical examination without abnormal findings, Z11.3 - Encounter for screening for infections with a predominantly sexual mode of transmission HIV Ab/Ag Today E78.5 - Hyperlipidemia, unspecified, I10 - Essential (primary) hypertension, R01.1 - Cardiac murmur, unspecified, Z00.00 - Encounter for general adult medical examination without abnormal findings Syphilis Screen Today E78.5 - Hyperlipidemia, unspecified, I10 - Essential (primary) hypertension, R01.1 - Cardiac murmur, unspecified, Z00.00 - Encounter for general adult medical examination without abnormal findings Medications: New loratadine (Claritin) 10 mg PO DAILY PRN 90 tabs 0RF allergy symptoms lisinopril 20 mg PO DAILY 30 tabs 3RF fluticasone propionate 50 mcg/actuation administer into each nostril 2 sprays intranasal BID PRN 16 grams 1RF allergy symptoms
[2025-03-30 15:25] VITALS: BP 140/82; PULSE 89; TEMP 36.2; O2SAT 97; BMI 34.9
== END 2025-03-30 16:24 | disposition home or self-care (01) ==
LOC: HO.HMCH 15:09
PROVIDERS: PCP Nurse Practitioner Family
DX: I10 Essential (primary) hypertension (principal); J30.1 Allergic rhinitis due to pollen

== ENCOUNTER → 2025-03-30 15:08 | Outpatient (BNVA) | payer OTHER, SELFPAY | PROVIDERS: PCP Nurse Practitioner Family | DX: I10 Essential (primary) hypertension (principal); J30.1 Allergic rhinitis due to pollen; E78.5 Hyperlipidemia, unspecified; R01.1 Cardiac murmur, unspecified; Z79.899 Other long term (current) drug therapy | CPT/HCPCS: 99212 ==

== ENCOUNTER 2025-04-11 10:45 | Outpatient (REF) | payer OTHER, SELFPAY ==
--- OUTSIDE RECORDS SUMMARY | 2025-04-11 10:47 | XMS_ITS | Clinical Summary ---
Author Organization [facility] ity Address [address] [place] [address] Care Team Providers Care Flight Information Expediter Name Role Phone Unavailable Primary Care Provider Unavailabl e Social History Tobacco Use Types Packs/Day Years Used Date Smoking Tobacco: Never Assessed Sex and Gender Information Value Date Recorded Sex Assigned at Not on file Legal Sex Male 1:34 AM EST Gender Identity Not on file Sexual Orientation Not on file Plan of Treatment Health Maintenance Due Date Last Done Comments DTaP,Tdap,and Td Vaccines (1 - Tdap) 2000 Hepatitis B Vaccines (1 of 3 - 19+ 3-dose series) 2000 Cholesterol Screening (Lipid Panel) 10/22/2022 Depression Screening 10/22/2022 HIV Screening 10/22/2022 Hepatitis C Screening 10/22/2022 Social Influencers of Health Screening 10/22/2022 COVID-19 Vaccine (2023-2 5 season) 2024 Influenza Vaccine (Season Ended) 2025 HIB Vaccines Aged Out No longer eligi ble based on patient's age to complete this topic HPV Vaccines Aged Out No longer eligi ble based on patient's age to complete this topic Hepatitis A Vaccines Aged Out No long er eligible based on patient's age to complete this topic IPV Vaccines Aged Out No longer eligi ble based on patient's age to complete this topic MMR Vaccines Aged Out No longer eligi ble based on patient's age to complete this topic Meningococcal ACWY Vaccine Aged Out N o longer eligible based on patient's age to complete this topic Meningococcal B Vaccine Aged Out No l onger eligible based on patient's age to complete this topic Pneumococcal Vaccine: Pediat rics (0 to 5 Years) and At-Risk Patients (6 to 64 Years) Aged Out No longer eligible b ased on patient's age to complete this topic RSV Immunization Patients Un prateek 20 months Aged Out No longer eligible b ased on patient's age to complete this topic Varicella Vaccines Aged Out No longer eligible based on patient's age to complete this topic
[2025-04-11 10:56] LABS: MANUAL DIFF FLAG NO
[2025-04-11 11:06] LABS: Basophils Absolute Auto 0.1 X10*3/uL (0.0-0.2); Eosinophils Absolute Auto 0.4 X10*3/uL (0.0-0.4); Eosinophils Percent Auto 4.7 % (0-4); Hematocrit 52.6 % (42.0-52.0); Hemoglobin 17.3 g/dl (14.0-18.0); Imm Gran Abs Auto 0.02 X10*3/uL (0.00-0.03); Imm Gran Pct Auto 0.2 % (0.0-0.4); Lymphocytes Absolute Auto 2.5 X10*3/uL (1.2-4.9); Lymphocytes Percent Auto 28.8 % (20-40); Mean Corpuscular HGB Conc 32.9 g/dl (31.0-36.0); Mean Corpuscular Hemoglobin 29.3 pg (27.0-33.0); Mean Corpuscular Volume 89.2 fL (80.0-98.0); Mean Platelet Volume 11.2 fL (9.4-12.4); Monocytes Absolute Auto 0.6 X10*3/uL (0.1-1.2); Monocytes Percent Auto 6.8 % (2-11); Neutrophils Absolute Auto 5.1 x10*3/uL (2.0-8.3); Neutrophils Percent Auto 58.5 % (45-73); Platelet Count 188 X10*3/uL (160-400); Red Cell Distribution Width 13.6 % (11.0-16.0); White Blood Count 8.7 X10*3/uL (4.8-10.8)
[2025-04-11 11:22] LABS: Appearance Urine Clear; Color Urine Yellow; Glucose Urine UA Negative (Negative); Leukocyte Esterase Urine Negative (Negative); Nitrite Urine Negative (Negative); Urine Blood Negative (Negative); Urine Ketones Negative (Negative); Urine Protein Negative (Neg-Trace)
[2025-04-11 12:00] LABS: Alanine Aminotransferase 54 U/L (0-40); Albumin Level 4.6 g/dL (3.5-5.0); Alkaline Phosphatase 95 U/L (39-117); Anion Gap 13 (12-20); Aspartate Amino Transferase 29 U/L (5-37); Bilirubin Total 0.5 mg/dL (0.0-1.0); Blood Urea Nitrogen 14 mg/dL (9-16); Calcium 9.4 mg/dL (8.4-10.2); Carbon Dioxide 29 mmol/L (22-29); Chloride 105 mmol/L (96-108); Cholesterol 222 mg/dL (<200); Estimated Glomerular Filt Rate > 60; Glucose Fasting 85 mg/dL (60-99); HDL Cholesterol 36 mg/dL (>40); LDL Cholesterol Calculated 152 mg/dL (<100); Sodium 143 mmol/L (135-145); Total Protein 7.7 g/dL (6.5-8.0); Triglycerides 171 mg/dL (<150)
[2025-04-11 12:17] LABS: Vitamin D 25-OH Total 15.9 ng/mL (>30)
[2025-04-13 07:52] LABS: Syphilis Screen Nonreactive (Nonreactive)
[2025-04-13 08:06] LABS: HIV AB/AG Nonreactive (Nonreactive); HIV Num 1 0.07 S/CO (0.00-0.99)
== END 2025-04-11 10:46 | disposition home or self-care (01) ==
LOC: HO.LAB 10:45
DX: Z00.00 Encounter for general adult medical examination without abnormal findings (principal); I10 Essential (primary) hypertension; R01.1 Cardiac murmur, unspecified; E78.5 Hyperlipidemia, unspecified
CPT/HCPCS: 36415; 80053; 80061; 81003; 82306; 84443; 85025; 86780; 87389

== ENCOUNTER 2025-09-16 14:47 | Outpatient (AMB) | payer OTHER, SELFPAY ==
--- OUTSIDE RECORDS SUMMARY | 2025-09-15 06:02 | XMS_ITS | Encounter Summary ---
Author Organization [facility] Address [address] [place] [address] Care Team Providers Care Blast Furnace Checker Name Role Phone Physician, No Pcp Primary Care Provider Unavaila ble Reason for Visit * Reason Comments Fever Chills Cough Headache PT COMES IN WITH REP ORTS OF FEVER, HEADACHE, BODYACHES, CHILLS AND COUGH FOR THE LAST COUPLE OF DAYS. TOOK MUCINEX WITH NO RELIEF. Encounter Details Date Type Department Care Team (Late st Contact Info) Description 09/15/2025 6:02 AM EDT - 09/15/2025 8:39 AM EDT Emergency [facility] Emergency [address] [place] [address] Liane Dowell MD [address] [place] [address] Willy Bryan MD [address] [place] [address] Viral syndrome (Primary Dx); Acute cough; Tonsillitis Discharge Disposition: Home or Self Care Social History Tobacco Use Types Packs/Day Years Used Date Smoking Tobacco: Never Smokeless Tobacco: Never Tobacco Cessation:Counseling Given: Not Answered Sex and Gender Information Value Date Recorded Sex Assigned at Not on file Legal Sex Male 1:34 AM EST Gender Identity Not on file Sexual Orientation Not on file documented as of this encounter Last Filed Vital Signs Vital Sign Reading Time Taken Comments Blood Pressure 154/113 09/15/2025 8:32 AM EDT Pulse 82 09/15/2025 8:32 AM EDT Temperature 36.9 C (98.4 F) 09/15/2025 8:32 AM EDT Respiratory Rate 18 09/15/2025 8:32 AM EDT Oxygen Saturation 98% 09/15/2025 8:32 AM EDT Inhaled Oxygen Concentration - - Weight 99.8 kg (220 lb) 09/15/2025 5:53 AM EDT Height 170.2 cm (5' 7 ) 09/15/2025 5:53 AM EDT Body Mass Index 34.46 09/15/2025 5:53 AM EDT documented in this encounter Functional Status * Calculated C-SSRS Risk Score (Lifetime/Recent) Answer Date of Assessment Author No Risk Indicated 09/15/2025 5:52 AM EDT Joy Ramsey RN * [place] Suicide Severity Rating Scale (Screener/Recent Self-Report) Question Answer Date of Assessment Author 1. Wish to be (Past 1 Month) No 5:52 AM EDT Joy Ramsey RN 2. Non-Specific Active Suici jean-paul Thoughts (Past 1 Month) No 09/15/2025 5:52 AM EDT Joy Ramsey RN 6. Suicidal Behavior (Lifetime) No 5:52 AM EDT Joy Ramsey RN documented as of this encounter Discharge Instructions * Discharge Instructions* Willy Bryan MD - 09/15/2025 8:17 AM EDT DIAGNOSIS / RESULTS / PROCEDURES (what was done): You came to the ED for fevers chills and headache. Your test for COVID flu RSV and other viruses, as well as strep throat, were both negative. An x-ray of your chest does not show pneumonia. You mostlikely have one of the viruses we are unable to test for. INSTRUCTIONS (what you need to do): Call your primary care doctor tomorrow to discuss when you should be seen next. Your doctor may want to arrange follow up for your visit today, or may ask to see you at your next scheduled visit. If you cannot eat or drink, or stop producing urine, return to the ED immediately. MEDICATIONS (what you need to take): Acetaminophen (Tylenol) 1000 mg (3x 325mg or 2x 500mg) 3 times a day as needed for pain Take one of the following: Ibuprofen (Motrin) 400 mg (2x 200mg) every 4 hours as needed for pain Naproxen (Aleve) 500mg twice daily as needed for pain documented in this encounter Discharge Disposition Disposition Code Departure Means Destination Comment s Home or Self Care documented in this encounter Progress Notes * Willy Bryan MD - 09/15/2025 7:29 AM EDT ED Course as of 09/15/25 0818 Count Includes [facility] Sep 15, 2025 0728 Pt signed out to Dr. Bryan pending labs, CXR, re-evaluation [RG] 0728 I, Dr Laz Bryan, have received signout for this patient from the off-going team. The pertinent portions of the history are 45-year-old male presents for fever chills cough headache ongoing for about a week. At this point the pending portions of the workup are follow-up swabs. At the time of my evaluation, the patient is awake alert resting in bed comfortably. Patient is persistently tachycardic, IV fluid bolus ordered. [MG] 0817 Patient is feeling better and tachycardia has resolved after fluids. Swabs are negative. Discussed findings with patient, agreeable to discharge. [MG] ED Course User Index [MG] Willy Bryan MD [RG] Liane Dowell MD Clinical Impressions as of 09/15/2518 Viral syndrome Acute cough Tonsillitis Data Unavailable 1. Viral syndrome 2. Acute cough 3. Tonsillitis Procedures Clark Contreras Joe * Joy Ramsey RN - 09/15/2025 5:51 AM EDT PT COMES IN WITH REPORTS OF FEVER, HEADACHE, BODYACHES, CHILLS AND COUGH FOR THE LAST COUPLE OF DAYS. TOOK MUCINEX WITH NO RELIEF. * Liane Dowell MD - 09/15/2025 5:49 AM EDT HPI Chief Complaint Patient presents with Fever Chills Cough Headache PT COMES IN WITH REPORTS OF FEVER, HEADACHE, BODYACHES, CHILLS AND COUGH FOR THE LAST COUPLE OF DAYS. TOOK MUCINEX WITH NO RELIEF. Patient without past medical history per PCP note 06/26/2021 presents reporting multiple cold and flusymptoms including fever, sore throat, headache, cough which is productive of green mucus, subjective fever, nasal congestion since Sunday. Patient states he has not checked his temperature at home.Patient shares that he is concerned that his symptoms have not gone away yet. He states that he is swallowing normally and denies chest pain, shortness of breath, abdominal pain, nausea, vomiting, urinary symptoms. History provided by: Medical records and patient interpreter translator used: No No data recorded Patient History Medical History[1] Surgical History[2] Family History[3] Social History Tobacco Use Smoking status: Never Smokeless tobacco: Never Substance Use Topics Alcohol use: Not on file Drug use: Not on file Review of Systems Review of Systems Physical Exam ED Triage Vitals [09/15/25 0553] Temp Heart Rate Resp BP 37.5 ??C (99.5 ??F) 109 18 (!) 172/112 SpO2 Temp Source Heart Rate Source Patient Position 99 % Oral Radial Sitting BP Location FiO2 (%) Left arm -- Physical Exam Vitals and nursing note reviewed. Constitutional: General: He is not in acute distress. Appearance: Normal appearance. He is not ill-appearing. HENT: Mouth/Throat: Pharynx: Uvula midline. Posterior oropharyngeal erythema present. No pharyngeal swelling. Tonsils: No tonsillar exudate. 3+ on the right. 3+ on the left. Cardiovascular: Rate and Rhythm: Regular rhythm. Tachycardia present. Heart sounds: Normal heart sounds. Pulmonary: Effort: Pulmonary effort is normal. Breath sounds: Normal breath sounds. Abdominal: Palpations: Abdomen is soft. Tenderness: There is no abdominal tenderness. Neurological: Mental Status: He is alert. ED Course & MDM Medical Decision Making Ddx: Viral syndrome, tonsillitis, strep, pneumonia, mild dehydration Patient is well-appearing with vitals hypertensive to 172/112, tachycardic to 109, otherwise WNL onRA on arrival and normal pulmonary and abdominal exams, 3+ symmetrically enlarged tonsils, diffuse erythema to oropharynx, no exudates, midline uvula, cardiac exam tachy, regular. Will obtain respiratory panel, rapid strep, CXR. Will treat with analgesia, push oral fluids. Did consider labs howeverpatient's symptoms very consistent with viral etiology, will re-visit depending on CXR. Discussed plan. Amount and/or Complexity of Data Reviewed External Data Reviewed: notes. Labs: ordered. Radiology: ordered. ED Course as of 09/15/25 0740 SunSep 15, 2025 0728 Pt signed out to Dr. Bryan pending labs, CXR, re-evaluation [RG] 727 I, Dr Laz Bryan, have received signout for this patient from the off-going team. The pertinent portions of the history are 45-year-old male presents for fever chills cough headache ongoing for about a week. At this point the pending portions of the workup are follow-up swabs. At the time of my evaluation, the patient is awake alert resting in bed comfortably. Patient is persistently tachycardic, IV fluid bolus ordered. [MG] ED Course User Index [MG] Willy Bryan MD [RG] Liane Dowell MD Clinical Impressions as of 09/15/25 0740 Viral syndrome Acute cough Tonsillitis Procedures Liane Dowell MD 09/15/25 0615 [1] History reviewed. No pertinent past medical history. [2] History reviewed. No pertinent surgical history. [3] No family history on file. Liane Dowell MD 09/15/25 0742 documented in this encounter Plan of Treatment Pending Results Name Type Priority Associated Diagnoses Date /Time Culture throat Microbiology STAT 09/15/20 6:28 AM EDT documented as of this encounter Procedures Procedure Name Priority Date/Time Associated Diagnosis Comments XR CHEST 1 VIEW STAT 09/15/2025 6:41 AM EDT RESPIRATORY VIRUS PANEL MOLECULAR STUDY STAT 09/15/2025 6:28 AM EDT RAPID STREP A SCREEN STAT 09/15/2025 6:28 AM EDT CULTURE THROAT STAT 09/15/2025 6:28 AM EDT documented in this encounter Results * XR Chest 1 View (09/15/2025 6:41 AM EDT) Anatomical Region Laterality Modality Body Radiographic Prema ging 09/15/2025 8:17 AM EDT Impressions 09/15/2025 8:18 AM EDT Impression: 1. Poor inspiration. 2. No active pulmonary process. Telerad ENOCH ([id number]) -------- FINAL REPORT -------- Dictated By: Patti Connor Dictated Date: 09/15/2025 08:17 ET Assigned Physician: Patti Connor Reviewed and Electronically Signed By: Patti Connor Signed Date: 09/15/2025 08:18 ET Workstation ID: [id number] Transcribed By: Self Edit Transcribed Date: 09/15/2025 08:17 ET Narrative 09/15/2025 8:18 AM EDT History: Dyspnea. Comparison: No comparison imaging at this institution. Findings: Portable AP upright chest at 6:35 AM. This is a poor inspiration. The cardiac silhouette is normal in size. The pulmonary vascularity appears normal. The lungs are grossly clear. Procedure Note Patti Connor MD - 09/15/2025 History: Dyspnea. Comparison: No comparison imaging at this institution. Findings: Portable AP upright chest at 6:35 AM. This is a poor inspiration. Thecardiac silhouette is normal in size. The pulmonary vascularity appearsnormal. The lungs are grossly clear. IMPRESSION: Impression: 1. Poor inspiration. 2. No active pulmonary process. Telerad ENOCH ([id number]) -------- FINAL REPORT -------- Dictated By: Patti Connor Dictated Date: 09/15/2025 08:17 ET Assigned Physician: Patti Connor Reviewed and Electronically Signed By: Patti Connor Signed Date: 09/15/2025 08:18 ET Workstation ID: [id number] Transcribed By: Self Edit Transcribed Date: 09/15/2025 08:17 ET Liane Dowell MD IMG XR PROCEDURES Final Result * Rapid strep A screen (09/15/2025 6:28 AM EDT) [facility] Strep A Ag Negative Negative, Invalid 09/15/2025 7:29 AM EDT [facility] Comment:Refer to Throat Cult ure. Swab Structure of anterior region of neck / Unknown Non-blood Collection / Unknown 09/15/2025 6:28 AM EDT 09/15/2025 6:42 AM EDT us Liane Dowell MD LAB MICROBIOLOGY - GENERAL ORDER JOSEE Final Result [facility] [address] [place] [address], * Respiratory virus panel molecular study (09/15/2025 6:28 AM EDT) Adenovirus Detection by PCR Not Detected Not Detected LAB MICROBIOLOGY METHOD 09/15/2025 8:11 AM EDT [facility] Influenza A PCR Not Detected Not Detected LAB MICROBIOLOGY METHOD 09/15/2025 8:11 AM EDT [facility] Influenza B PCR Not Detected Not Detected LAB MICROBIOLOGY METHOD 09/15/2025 8:11 AM EDT [facility] Coronavirus 229E Not Detected Not Detected LAB MICROBIOLOGY METHOD 09/15/2025 8:11 AM EDT [facility] Coronavirus HKU1 Not Detected Not Detected LAB MICROBIOLOGY METHOD 09/15/2025 8:11 AM EDT [facility] Coronavirus OC43 Not Detected Not Detected LAB MICROBIOLOGY METHOD 09/15/2025 8:11 AM EDT [facility] Coronavirus NL63 Not Detected Not Detected LAB MICROBIOLOGY METHOD 09/15/2025 8:11 AM EDT [facility] Parainfluenza Virus 1 Not Detected Not Detected LAB MICROBIOLOGY METHOD 09/15/2025 8:11 AM EDT [facility] Parainfluenza Virus 2 Not Detected Not Detected LAB MICROBIOLOGY METHOD 09/15/2025 8:11 AM EDT [facility] Parainfluenza Virus 3 Not Detected Not Detected LAB MICROBIOLOGY METHOD 09/15/2025 8:11 AM EDT [facility] Parainfluenza Virus 4 Not Detected Not Detected LAB MICROBIOLOGY METHOD 09/15/2025 8:11 AM EDT [facility] RSV PCR Not Detected Not Detected LAB MICROBIOLOGY METHOD [facility] Human Metapneumovirus A and B Not Detected Not Detected LAB MICROBIOLOGY METHOD 09/15/2025 8:11 AM EDT [facility] Rhinovirus/Entero virus Not Detected Not Detected LAB MICROBIOLOGY METHOD 09/15/2025 8:11 AM EDT [facility] Bordetella pertussis Not Detected Not Detected LAB MICROBIOLOGY METHOD 09/15/2025 8:11 AM [facility] Bordetella parapertussis Not Detected Not Detected LAB MICROBIOLOGY METHOD 09/15/2025 8:11 AM [facility] Mycoplasma pneumo by PCR Not Detected Not Detected LAB MICROBIOLOGY METHOD 09/15/2025 8:11 AM T [facility] Chlamydia pneumoniae Not Detected Not Detected LAB MICROBIOLOGY METHOD 09/15/2025 8:11 AM [facility] SARS COV-2 Not Detected Not Detected LAB MICROBIOLOGY METHOD 09/15/2025 8:11 AM [facility] Swab Both anterior nares / Unknown Non-blood Collection / Unknown 09/15/2025 6:28 AM EDT 09/15/2025 7:12 AM EDT [facility] - 09/15/2025 8:11 AM EDT Testing was performed using the [employer] Respiratory Pathogen PCR Assay. All results must be correlated with the clinical findings. Results should not be used as the sole basis for diagnosis. False Negative results may occur from the presence of sequence variants in the region targeted by the assay or the presence of inhibitors. Results may be affected by concurrent antiviral/antimicrobial therapy or levels of organisms that are below the limit of detection. Liane Dowell MD LAB MICROBIOLOGY - GENERAL ORDER JOSEE Final Result [facility] [address] [place] [address], documented in this encounter Visit Diagnoses Diagnosis Viral syndrome- Primary Unspecified viral infection, in conditions classified elsewhere and of unspecified site Acute cough Tonsillitis Acute tonsillitis documented in this encounter Administered Medications Inactive Administered Medications - up to 3 most recent administrations Medication Order MAR Action Action Date Dose Rate Site acetaminophen (TYLENOL) tablet 1,000 mg 1,000 mg, oral, Once, On Sun09/15/25 at 0613, For 1 dose Given 09/15/2025 6:31 AM EDT 1,000 mg ketorolac (TORADOL) injection 15 mg 15 mg, intramuscular, Once, On Sun09/15/25 at 0613, For 1 dose Given 09/15/2025 6:31 AM EDT 15 mg Left Deltoid sodium chloride 0.9 % bolus 1,000 mL 1,000 mL, intravenous, Once, On Sun09/15/25 at 0715, For 1 dose New Bag 09/15/2025 7:31 AM EDT 1,000 mL documented in this encounter Active and Recently Administered Medications Times are shown in EDT. Scheduled Medication Order 09/13/2025 09/14/2025 09/15/2025 acetaminophen (TYLENOL) tablet 1,000 mg (COMPLETED) 1,000 mg, oral, Once, On Sun09/15/25 at 0613, For 1 dose 0631 (Given - Provid er: Denise Krueger RN) ketorolac (TORADOL) injection 15 mg (COMPLETED) 15 mg, intramuscular, Once, On Sun09/15/25 at 0613, For 1 dose 0631 (Given - Provid er: Denise Krueger RN) sodium chloride 0.9 % bolus 1,000 mL (COMPLETED) 1,000 mL, intravenous, Once, On Sun09/15/25 at 0715, For 1 dose 0731 (New Bag - Prov ider: Zahra Morales RN)0830 (Stopped - Provider: Zahra Morales RN) documented in this encounter Additional Health Concerns Infection Onset Date Last Indicated Resolved Time Respiratory Rule-Out 09/15/2025 09/15/2025 025 8:11 AM EDT COVID-19 Rule-Out 09/15/2025 09/15/2025 09/15/2025 8:11 AM EDT documented as of this encounter Care Teams Blast Furnace Checker Relationship Specialty Start Date End Date Physician, No Pcp PCP - General 09/15/25 documented as of this encounter
--- NOTE | 2025-09-16 14:53 | A.OFFPC_ITS ---
Vital Signs 09/16/25 14:54 Height 5 ft 7 in Weight 223 lb BMI 34.9 BP 144/108 H Blood Pressure Location Lt brachial Position Sitting Pulse 111 H Pulse Source Pulse Oximeter Temp 97.3 F Temp Source Temporal Artery Scan Pulse Oximetry (%) 95 Oxygen Delivery Method Room Air Intake Visit Reasons: fever , Province Archivist Required: Yes Province Archivist Language: Czech Allergies hydrochlorothiazide Allergy (Unknown, Verified 09/16/25 14:56) headache Medication List - Last Reconciled 09/16/25 by Kalani Soria MD fluticasone propionate 50 mcg/actuation 2 sprays intranasal BID PRN lisinopril 20 mg PO DAILY loratadine (Claritin) 10 mg PO DAILY PRN Tobacco use date assessed: 09/16/25 Dental Screening Dental Screen Date: 09/16/25 Did you have a dental visit in the last 12 months?: No Did you have a dental problem in the last 6 months where you did not have access to dental care?: No Was dental information given to patient?: No HPI HPI Comments History of Present Illness Details The patient is a 45-year-old male presenting for evaluation of fever, diarrhea, congestion, and stomach pain. His symptoms began yesterday with the onset of diarrhea, congestion, and fever, which prompted a visit to the emergency room yesterday. Diagnostic testing at the hospital was reportedly negative, but he awoke with a fever again today. Associated symptoms include stomach pain and a mild cough. The patient eyes were red but he noted that his eyes are always red. He denies any issues with urination or joint pain. [facility] Medical History Hyperlipidemia Murmur HTN (hypertension) Surgical History Hx of appendectomy Family History Mother Heart problem Father Heart problem Social History Household Members: Spouse and Children Housing: House Are you a primary managed care manager to a significant other at home: No Do you presently have visiting nurse or other home services: No 75 years or older and lives alone: No Alcohol intake: never Patient Tobacco Use Status: Never used Tobacco e-Cigarette/Vaping Use: Never Used Second Hand Smoke Exposure: No service: No Current occupational status: employed Current occupational exposures/hazards: Yes Sexual orientation: Unable to collect Gender identity: Unable to collect Cognitive needs: No Hearing needs: No Vision needs: No Questionnaire PHQ-9 Over the last 2 weeks, how often have you been bothered by any of the following problems? 1. Little interest or pleasure in doing things: not at all 2. Feeling down, depressed, or hopeless: not at all 3. Trouble falling or staying asleep, or sleeping too much: not at all 4. Feeling tired or having little energy: not at all 5. Poor appetite or overeating: not at all 6. Feeling bad about yourself - or that you are a failure or have let yourself or your family down: not at all 7. Trouble concentrating on things, such as reading the newspaper or watching television: not at all 8. Moving or speaking so slowly that other people could have noticed. Or the opposite - being so fidgety or restless that you have been moving around a lot more than usual: not at all 9. Thoughts that you would be better off or of hurting yourself in some way: not at all Total score: 0 Depression Screening Interpretation: Negative Depression Screening Done: Yes Source: Developed by Drs. Mohinder Simpson, Nelly Guzmán, Pardeep Bedoya and colleagues, with an educational cary from [employer]. Thrive Questionnaire Date Thrive assessed: 12/24/24 I am a: Patient What is your living situation today?: I have a steady place to live Within the past 12 months, did the food you bought not last and you didn't have the money to get more?: Never true Within the past 12 months, did you worry whether your food would run out before you got money to buy more?: Never true Do you have trouble paying for medicines?: No Do you have trouble getting transportation to medical appointments?: No Do you have trouble paying your heating and electricity bill?: No Do you have trouble taking care of your child, family member or friend?: No Do you have trouble with day-to-day activities such as bathing, preparing meals, shopping, managing finances, etc.?: No Are you currently unemployed and looking for a job?: No Are you interested in more education?: No Please select the resources that you would like help with: None Currently or been in a relationship where the following occur: I choose not to answer THRIVE Score: 0 AUDIT C Alcohol Use Questionnaire (AUDIT-C) 1. How often do you have a drink containing alcohol?: Never 3. How often do you have six or more drinks on one occasion?: Never Total Score: 0 GUADALUPE-7 AMB Questionnaire GUADALUPE-7 Date GUADALUPE - 7 assessed: 03/30/25 Feeling nervous, anxious, or on edge: 0 = Not at all Not being able to stop or control worryin = Not at all Worrying too much about different things: 0 = Not at all Trouble relaxin = Not at all Being so restless that it is hard to sit still: 0 = Not at all Becoming easily annoyed or irritable: 0 = Not at all Feeling afraid as if something awful might happen: 0 = Not at all Total GUADALUPE-7 score (0-4 normal; 5-9 mild; 10-14 moderate; 15-21 severe): 0 Source: Developed by Drs. Mohinder Simpson, Nelly Guzmán, Pardeep Bedoya and colleagues, with an educational cary from [employer]. Review of Systems Const Details: As per HPI. Physical exam (Primary Care) Vital Signs: Last Vital Signs Temp 97.3 F 09/16/25 14:54 Pulse 111 H 09/16/25 14:54 BP 144/108 H 09/16/25 14:54 Pulse Ox 95 09/16/25 14:54 Oxygen Delivery Method Room Air 09/16/25 14:54 BMI result Body Mass Index 34.9 Tobacco/Smoking Status: Tobacco use Status Tobacco use date assessed 09/16/25 09/16/25 14:57 Patient Tobacco Use Status Never used Tobacco 09/16/25 14:57 e-Cigarette/Vaping Use Never Used 09/16/25 14:57 PHQ-9: PHQ-9 Score PHQ-9: Total score 0 09/16/25 15:06 Depression Screening Interpretation: Negative Thrive Assessment: Date of Thrive Assessment Date Thrive assessed 12/24/24 09/16/25 14:57 Currently or been in a relationship where the following occur: I choose not to answer Const Other: Pertinent findings are in BOLD GENERAL APPEARANCE NAD, activity normal for age, well developed/ well nourished, no cyanosis, pallor, or diaphoresis. EYES lids/conjunctiva normal. EARS/NOSE/THROAT Mucous membranes moist, nares normal, lips/teeth normal uvula midline without oral pharyngeal erythema, exudate or swelling TMs normal bilaterally. No lymphangitis/lymphedema. HEAD/NECK normocephalic atraumatic, no facial trauma, neck is supple. RESPIRATORY respiratory effort normal, speaks in full sentences, no tripod posit ion, no accessory muscle use. Lungs clear to auscultation without rhonchi, wheezes, rales CARDIAC Regular rate and rhythm, no edema. ABDOMINAL Soft, ND/NT. No evidence of fluid wave. No pulsatile masses on exam, rebound tenderness, Walton sign or pain over Mcburney's point. MUSCLES/EXTREMITIES No abnormal range of motion, no swelling. SKIN Warm, pink and dry. No rashes, dermatoses, petechiae or lesions. NEUROLOGICAL Speech is clear and appropriate. Normal level of consciousness. Gait and coordination are normal. 5/5 strength in all extremities. PSYCH Normal mood and affect. Judgement/competence is appropriate Coding Level of Care Code Est Pt Level 3 (18206) Diagnoses Fever, unspecified fever cause R50.9 Fever type: unspecified Tachycardia R00.0 Time Spent (min) 20 Assessment & Plan Assessment & Plan (1) Fever: Code(s): R50.9 - Fever, unspecified Category: Medical Qualifiers: Fever type: unspecified Qualified Code(s): R50.9 - Fever, unspecified Plan: - Due to the persistence of fever and abdominal pain, a short course of antibiotics is warranted. - Prescribed Bactrim 800 mg to be taken twice daily for 7 days. - The patient may use Tylenol or ibuprofen as needed for fever management. - Lab work will be deferred but ordered at the next visit if the patient's condition does not improve. - A follow-up visit is scheduled for 1 week to reassess symptoms. - The importance of maintaining adequate fluid intake was emphasized. (2) Tachycardia: Code(s): R00.0 - Tachycardia, unspecified Category: Medical Plan: Most likely 2/2 acute illness and fever. Advised the patient to drink plenty of fluids to assist with tachycardia and fever. We will further assess in one week in case tachycardia persists. EKG, and further W-U. Plan I discussed with the patient that given his persistent fever and abdominal pain, I recommend a short course of antibiotics. I have prescribed Bactrim 800 mg to be taken twice a day for seven days. I advised him that he can use [id number] medications like Tylenol or ibuprofen for the fever. I also emphasized the importance of drinking plenty of fluids. We will plan to see him back in one week, and if he has not improved by then, we will proceed with ordering lab tests. Medications: New sulfamethoxazole-trimethoprim 800-160 mg (Bactrim DS) 1 tab PO BID 14 tabs 0RF
[2025-09-16 14:54] VITALS: BP 144/108; PULSE 111; TEMP 36.3; O2SAT 95; BMI 34.9
--- OUTSIDE RECORDS SUMMARY | 2025-09-16 19:10 | XMS_ITS | Clinical Summary ---
Author Organization [facility] Address [address] [place] [address] Phone Care Team Providers Care Assistant Finance Manager Name Role Phone Physician, No Pcp Primary Care Provider Unavaila ble Allergies Active Allergy Reactions Criticality Noted Date Comments Ciprofloxacin 09/15/2025 Medications No known medications Encounters Date Type Department Care Team Description 09/15/2025 6:02 AM EDT - 09/15/2025 8:39 AM EDT Emergency [facility] Emergency [address] [place] [address] Liane Dowell MD Goebel, Mathew, MD Viral syndrome (Primary Dx); Acute cough; Tonsillitis Discharge Disposition: Home or Self Care from Last 3 Months Social History Tobacco Use Types Packs/Day Years Used Date Smoking Tobacco: Never Smokeless Tobacco: Never Tobacco Cessation:Counseling Given: Not Answered Sex and Gender Information Value Date Recorded Sex Assigned at Not on file Legal Sex Male 1:34 AM EST Gender Identity Not on file Sexual Orientation Not on file Obstetrics History Last Filed Vital Signs Vital Sign Reading [...] Mass Index 34.46 09/15/2025 5:53 AM EDT Plan of Treatment Health Maintenance Due Date Last Done Comments DTaP,Tdap,and Td Vaccines (1 - Tdap) 2000 Hepatitis B Vaccines (1 of 3 - 19+ 3-dose series) 2000 HPV Vaccines (1 - 3-dose SCD M series) 2008 Depression Screening 11/19/2024 COVID-19 Vaccine (1 - 2023-2 5 season) 2025 Influenza Vaccine (#1) 2025 Cholesterol Screening (Lipid Panel) 09/15/2025 HIV Screening 09/15/2025 Hepatitis C Screening 09/15/2025 Social Influencers of Health Screening 09/15/2025 RSV Immunization Adult Patie nts (1 - 1-dose 75+ series) 2056 HIB Vaccines Aged Out No longer eligi [...] 5 Years) and At-Risk Patients (6 to 49 Years) Aged Out No longer eligible b ased on patient's age to complete this topic RSV Immunization Patients Un prateek 20 months Aged Out No longer eligible b ased on patient's age to complete this topic Varicella Vaccines Aged Out No longer eligible based on patient's age to complete this topic Procedures Procedure Name Priority Date/Time Associated Diagnosis Comments XR CHEST 1 VIEW STAT 09/15/2025 6:41 AM EDT CULTURE THROAT STAT 09/15/2025 6:28 AM EDT RAPID STREP A SCREEN STAT 09/15/2025 6:28 AM EDT RESPIRATORY VIRUS PANEL MOLECULAR STUDY STAT 09/15/2025 6:28 AM EDT from Last 3 Months Results * XR Chest 1 View (09/15/2025 6:41 AM EDT) Anatomical Region Laterality Modality Body Radiographic Prema ging 09/15/2025 8:17 AM EDT Impressions 09/15/2025 8:18 AM EDT Impression: 1. Poor inspiration. 2. No active pulmonary process. Telerad ENOCH ([id number]) -------- FINAL REPORT -------- Dictated By: Patti Connor Dictated Date: 09/15/2025 08:17 ET Assigned Physician: Patti Connor Reviewed and Electronically Signed By: Patti Connor Signed Date: 09/15/2025 08:18 ET Workstation ID: [id number] Transcribed By: Self Edit Transcribed Date: 09/15/2025 [...] 2. No active pulmonary process. Telerad ENOCH ([id number]) -------- FINAL REPORT -------- Dictated By: Patti Connor Dictated Date: 09/15/2025 08:17 ET Assigned Physician: Patti Connor Reviewed and Electronically Signed By: Patti Connor Signed Date: 09/15/2025 08:18 ET Workstation ID: [id number] Transcribed By: Self Edit Transcribed Date: 09/15/2025 08:17 ET Liane Dowell MD IMG XR PROCEDURES Final Result * Respiratory virus panel molecular study (09/15/2025 6:28 AM EDT) Adenovirus Detection by PCR Not Detected Not Detected LAB MICROBIOLOGY METHOD 09/15/2025 8:11 AM EDT [facility] Influenza A PCR Not Detected Not Detected LAB MICROBIOLOGY METHOD [facility] Influenza B PCR Not Detected Not Detected LAB MICROBIOLOGY METHOD 09/15/2025 8:11 AM EDT [facility] Coronavirus 229E Not Detected Not Detected LAB MICROBIOLOGY METHOD 09/15/2025 8:11 AM EDT [facility] Coronavirus HKU1 Not Detected Not Detected LAB MICROBIOLOGY METHOD 09/15/2025 8:11 AM EDT [facility] Coronavirus OC43 Not Detected Not Detected LAB MICROBIOLOGY METHOD 09/15[facility]2025 [facility] Coronavirus NL63 Not Detected Not Detected LAB MICROBIOLOGY METHOD 09/15/2025 8:11 AM EDT [facility] Parainfluenza Virus 1 Not Detected Not Detected LAB MICROBIOLOGY METHOD 09/15/2025 8:[facility] Parainfluenza Virus 2 Not Detected Not Detected LAB MICROBIOLOGY METHOD 09/15/2025 8:11 AM [facility] Parainfluenza Virus 3 Not Detected Not Detected LAB MICROBIOLOGY METHOD 09/15/2025 8:11 [facility] Parainfluenza Virus 4 Not Detected Not Detected LAB MICROBIOLOGY METHOD 09/15/2025 8:11 AM EDT [facility] RSV PCR Not Detected Not Detected LAB MICROBIOLOGY METHOD 09/15/2025 8:11 AM EDT [facility] Human Metapneumovirus A and B Not Detected Not Detected LAB MICROBIOLOGY METHOD 09/15/2025 8:11 [facility] Rhinovirus/Entero virus Not Detected Not Detected LAB MICROBIOLOGY METHOD 09/15/2025 8:11 AM EDT [facility] Bordetella pertussis Not Detected Not Detected LAB MICROBIOLOGY METHOD 09/15/2025 8:11 AM EDT [facility] Bordetella parapertussis Not Detected Not Detected LAB MICROBIOLOGY METHOD 09/15/2025 8:11 AM EDT [facility] Mycoplasma pneumo by PCR Not Detected Not Detected LAB MICROBIOLOGY METHOD 09/15/2025 8:11 AM EDT [facility] Chlamydia pneumoniae Not Detected Not Detected LAB MICROBIOLOGY METHOD 09/15/2025 8:11 AM EDT [facility] SARS COV-2 Not Detected Not Detected LAB MICROBIOLOGY METHOD 09/15/2025 8:11 AM EDT [facility] Swab Both anterior nares / Unknown Non-blood Collection / Unknown 09/15/2025 6:28 AM EDT 09/15/2025 7:12 AM EDT [facility] - 09/15/2025 8:11 AM EDT Testing was performed using the [employer] Respiratory Pathogen PCR Assay. All results must [...] that are below the limit of detection. us Liane Dowell MD LAB MICROBIOLOGY - GENERAL ORDER JOSEE Final Result [facility] [address] [place] [address], * Rapid strep A screen (09/15/2025 6:28 AM EDT) Strep A Ag Negative Negative, Invalid 09/15/2025 7:29 AM EDT [facility] Comment:Refer to Throat Cult ure. Swab Structure of anterior region of neck / Unknown Non-blood Collection / Unknown 09/15/2025 6:28 AM EDT 09/15/2025 6:42 AM EDT us Liane Dowell MD LAB MICROBIOLOGY - GENERAL ORDER JOSEE Final Result [facility] [address] [place] [address], [place] [phone] from Last 3 Months Insurance [facility] [employer] Care Teams Assistant Finance Manager Relationship Specialty Start Date End Date Physician, No Pcp PCP - General 09/15/25
== END 2025-09-16 17:43 | disposition home or self-care (01) ==
LOC: HO.HMCH 14:48
PROVIDERS: Visit Provider Internal Medicine
DX: R50.9 Fever, unspecified (principal); R00.0 Tachycardia, unspecified

== ENCOUNTER → 2025-09-16 14:47 | Outpatient (BNVA) | payer OTHER, SELFPAY | PROVIDERS: Visit Provider Internal Medicine | DX: R00.0 Tachycardia, unspecified (principal); R50.9 Fever, unspecified; R05.9 Cough, unspecified; R10.9 Unspecified abdominal pain | CPT/HCPCS: 99212 ==